=== PATIENT | female | born 1985 | race Caucasian/White ===

== ENCOUNTER 2020-02-10 15:53 | Emergency (ER) | payer MEDICAID ==
[~2020-02-10] VITALS: Ht 162.6 cm; Wt 76.1 kg
[2020-02-10 17:04] LABS: URINE HCG NEGATIVE (NEG)
[2020-02-10 17:17] LABS: BASOPHILS % (AUTO) 0.6 % (0-1); EOSINOPHILS # (AUTO) 0.1 X10'3 (0-0.9); EOSINOPHILS % (AUTO) 1.4 % (0-6); HEMATOCRIT 39.3 % (35.0-45.0); HEMOGLOBIN 12.7 g/dl (12.0-16.0); LYMPHOCYTES # (AUTO) 1.7 X10'3 (1.1-4.8); LYMPHOCYTES % (AUTO) 20.6 % (21-51); MEAN CORPUSCULAR HGB CONC 32.3 g/dL (33.0-36.5); MEAN CORPUSCULAR VOLUME 80.5 FL (78-98); MEAN PLATELET VOLUME 9.4 FL (7.4-10.4); MONOCYTES # (AUTO) 0.5 X10'3 (0-0.9); MONOCYTES % (AUTO) 6.4 % (2-12); NEUTROPHILS # (AUTO) 5.9 X10'3 (1.8-7.7); PLATELET COUNT 253 X10'3 (140-440); RED BLOOD COUNT 4.88 X10'6 (4.20-5.60); RED CELL DISTRIBUTION WIDTH 15.2 % (11.5-14.5); WHITE BLOOD COUNT 8.3 X10'3 (4.5-11.0)
[2020-02-10 17:21] LABS: ALANINE AMINOTRANSFERASE 19 U/L (12-78); ALBUMIN 3.5 G/DL (3.4-5.0); ALBUMIN/GLOBULIN RATIO 0.9 (1.1-1.5); ALKALINE PHOSPHATASE 66 IU/L (46-116); ANION GAP 8 (8-16); ASPARTATE AMINO TRANSFERASE 14 U/L (10-37); BILIRUBIN,TOTAL 0.2 MG/DL (0.1-1.0); BLOOD UREA NITROGEN 11 MG/DL (7-18); BUN/CREATININE RATIO 17.2 (6.6-38.0); CHLORIDE 107 MMOL/L (99-107); CREATININE 0.64 MG/DL (0.40-0.90); GLUCOSE 97 MG/DL (70-104); POTASSIUM 3.5 MMOL/L (3.5-5.1); SODIUM 142 MMOL/L (135-145); TOTAL CARBON DIOXIDE 26.8 MMOL/L (24-32); TOTAL PROTEIN 7.4 G/DL (6.4-8.2); eGFR > 90 ML/MIN
[2020-02-10 17:22] LABS: CLARITY,URINE CLEAR (Clear); COLOR,URINE YELLOW (Yellow); GLUCOSE, URINE NEGATIVE (Neg); KETONES,URINE NEGATIVE (Neg); LEUKOCYTE ESTERASE ,URINE NEGATIVE (Neg); NITRITES, URINE NEGATIVE (Neg); OCCULT BLOOD,URINE NEGATIVE (Neg); PH,URINE 6.5 (4.8-8.0); PROTEIN,URINE NEGATIVE (Neg); UROBILINOGEN,URINE 0.2 E.U/dL (0.2-1.0)
[2020-02-10 17:29] LABS: UA COLLECTION TYPE VOIDED
[2020-02-10 18:18] VITALS: BP 103/74
== END 2020-02-10 18:11 | disposition home or self-care (01) ==
LOC: ER 15:54
DX: R55 Syncope and collapse (principal); R42 Dizziness and giddiness; R11.0 Nausea; F41.9 Anxiety disorder, unspecified; F32.9 Major depressive disorder, single episode, unspecified
CPT/HCPCS: 36415; 71045; 80053; 81003; 81025; 85025; 93005; 99285

== ENCOUNTER 2020-02-19 15:53 | Emergency (ER) | payer MEDICAID | END 2020-02-19 16:09 | disposition left against medical advice (07) | LOC: ER 15:54 | DX: Z20.828 Contact with and (suspected) exposure to other viral communicable diseases (principal); Z53.21 Procedure and treatment not carried out due to patient leaving prior to being seen by health care provider ==

== ENCOUNTER 2021-02-13 09:04 | Emergency (ER) | payer MEDICAID ==
[~2021-02-13] VITALS: Ht 160 cm; Wt 56.8 kg
--- NOTE | 2021-02-13 12:25 | NUR ---
Pt has a moist cough.
[2021-02-13 12:29] LABS: BASOPHILS % (AUTO) 0.2 % (0-1); EOSINOPHILS % (AUTO) 0.4 % (0-6); HEMATOCRIT 35.5 % (35.0-45.0); HEMOGLOBIN 11.3 g/dl (12.0-16.0); LYMPHOCYTES # (AUTO) 0.8 X10'3 (1.1-4.8); LYMPHOCYTES % (AUTO) 13.9 % (21-51); MEAN CORPUSCULAR HEMOGLOBIN 24.2 PG (27.0-31.0); MEAN CORPUSCULAR HGB CONC 31.8 g/dL (33.0-36.5); MEAN CORPUSCULAR VOLUME 76.2 FL (78-98); MEAN PLATELET VOLUME 9.3 FL (7.4-10.4); MONOCYTES # (AUTO) 0.4 X10'3 (0-0.9); MONOCYTES % (AUTO) 6.5 % (2-12); NEUTROPHILS # (AUTO) 4.5 X10'3 (1.8-7.7); PLATELET COUNT 254 X10'3 (140-440); RED BLOOD COUNT 4.66 X10'6 (4.20-5.60); RED CELL DISTRIBUTION WIDTH 16.1 % (11.5-14.5); WHITE BLOOD COUNT 5.7 X10'3 (4.5-11.0)
[2021-02-13 12:39] LABS: D-DIMER 3.53 MG/L FEU (0-0.50)
[2021-02-13 12:46] LABS: ALANINE AMINOTRANSFERASE 37 U/L (12-78); ALBUMIN 2.6 G/DL (3.4-5.0); ALBUMIN/GLOBULIN RATIO 0.6 (1.1-1.5); ALKALINE PHOSPHATASE 49 IU/L (46-116); ANION GAP 7 (8-16); ASPARTATE AMINO TRANSFERASE 37 U/L (10-37); BILIRUBIN,TOTAL 0.4 MG/DL (0.1-1.0); BLOOD UREA NITROGEN 8 MG/DL (7-18); BUN/CREATININE RATIO 12.7 (6.6-38.0); C-REACTIVE PROTEIN 7.42 MG/DL (0.0-0.5); CALCIUM 8.5 MG/DL (8.5-10.1); CHLORIDE 104 MMOL/L (99-107); CREATININE 0.63 MG/DL (0.40-0.90); GLUCOSE 96 MG/DL (70-104); MAGNESIUM 2.4 MG/DL (1.5-2.4); SODIUM 140 MMOL/L (135-145); TOTAL PROTEIN 6.9 G/DL (6.4-8.2); eGFR > 90 ML/MIN
[2021-02-13 13:12] LABS: ANISOCYTOSIS 1+; MICROCYTOSIS 1+; PLATELET ESTIMATE NORMAL; TOTAL CELLS COUNTED 100
[2021-02-13 13:13] LABS: ELLIPTOCYTES FEW; LARGE PLATELETS FEW; SMUDGE CELLS FEW; TEAR DROP CELLS FEW
--- NOTE | 2021-02-13 13:30 | NUR ---
Pt attempted to void. Not able to give a specimen at this time. Given a pitcher of warm water.
[2021-02-13 14:10] VITALS: BP 97/65
[2021-02-13] MEDS ORDERED: iohexol 350MG/ML 100ml bottle IV ONE (14:40)
[2021-02-13] MEDS ORDERED: azithromycin 250mg tablet PO ONE (16:20)
[2021-02-13] MEDS ORDERED: dexamethasone 4mg tablet PO ONE (16:20)
[2021-02-13] MEDS ORDERED: DEXA6TAB6 PO (16:21)
[2021-02-13] MEDS ORDERED: AZIT-31 PO (16:21)
--- NOTE | 2021-02-13 16:40 | NUR ---
Pt given and understands d/c instructions. Ambulatory with a steady gait. IV d/c'd, catheter was intact.
== END 2021-02-13 16:43 | disposition home or self-care (01) ==
LOC: ER 09:05
DX: U07.1 COVID-19 (principal); J12.82 Pneumonia due to coronavirus disease 2019; E87.6 Hypokalemia; R09.02 Hypoxemia; Z79.2 Long term (current) use of antibiotics; Z79.899 Other long term (current) drug therapy
CPT/HCPCS: 36415; 71045; 71275; 80053; 83735; 84145; 85007; 85025; 85379; 86140; 87502; 87503; 87635; 99285; C9803; Q9967

== ENCOUNTER 2021-03-26 12:43 | Emergency (ER) | payer MEDICAID ==
[~2021-03-26] VITALS: Ht 162.6 cm; Wt 84.5 kg
[~2021-03-26 12:43] MED LIST: DEXA6TAB6 PO
[2021-03-26 12:45] VITALS: BP 116/66
== END 2021-03-26 14:11 | disposition home or self-care (01) ==
LOC: ER 12:44
DX: J02.9 Acute pharyngitis, unspecified (principal); F41.9 Anxiety disorder, unspecified; I10 Essential (primary) hypertension; Z20.822 Contact with and (suspected) exposure to COVID-19
CPT/HCPCS: 36415; 87081; 87880; 99283; U0003; U0005

== ENCOUNTER 2021-04-22 20:39 | Emergency (ER) | payer MEDICAID ==
[~2021-04-22] VITALS: Ht 162.6 cm; Wt 84.1 kg
[2021-04-22 20:48] VITALS: BP 109/60
--- NOTE | 2021-04-22 23:00 | NUR ---
ankle wrapped with alberta bandage. crutch trianing provided. verbal orders recvd from MD Hardeep.
== END 2021-04-22 23:01 | disposition home or self-care (01) ==
LOC: ER 20:40
DX: S93.401A Sprain of unspecified ligament of right ankle, initial encounter (principal); M25.571 Pain in right ankle and joints of right foot; M79.671 Pain in right foot; F41.9 Anxiety disorder, unspecified; F32.A Depression, unspecified; Z79.899 Other long term (current) drug therapy; W19.XXXA Unspecified fall, initial encounter; Y93.89 Activity, other specified; Y92.89 Other specified places as the place of occurrence of the external cause; Y99.8 Other external cause status
CPT/HCPCS: 29515; 73610; 73630; 99284

== ENCOUNTER 2021-05-19 09:40 | Emergency (ER) | payer MEDICAID ==
[~2021-05-19] VITALS: Ht 162.6 cm; Wt 84.0 kg
[2021-05-19 09:44] VITALS: BP 110/71
--- NOTE | 2021-05-19 10:27 | NUR ---
PT FINISHED ABX CLINDAMYCIN R/T BREAST PAIN 05/18/21
[2021-05-19] MEDS ORDERED: CefTRIAXone 1000mg IM Kit (w/lidocaine diluent) IM ONE (10:50)
[2021-05-19] MEDS ORDERED: DIF150T PO (11:07)
== END 2021-05-19 11:37 | disposition home or self-care (01) ==
LOC: ER 09:40
DX: N61.1 Abscess of the breast and nipple (principal); B37.3 Candidiasis of vulva and vagina; F41.9 Anxiety disorder, unspecified; F32.9 Major depressive disorder, single episode, unspecified
CPT/HCPCS: 96372; 99283; J0696

== ENCOUNTER 2021-08-01 09:56 | Emergency (ER) | payer MEDICAID ==
[~2021-08-01] VITALS: Ht 160 cm; Wt 86.4 kg
[2021-08-01 10:58] LABS: CLARITY,URINE CLEAR (Clear); COLOR,URINE YELLOW (Yellow); GLUCOSE, URINE NEGATIVE (Neg); KETONES,URINE NEGATIVE (Neg); LEUKOCYTE ESTERASE ,URINE NEGATIVE (Neg); NITRITES, URINE NEGATIVE (Neg); OCCULT BLOOD,URINE NEGATIVE (Neg); PH,URINE 6.5 (4.8-8.0); PROTEIN,URINE NEGATIVE (Neg); UA COLLECTION TYPE VOIDED; URINE HCG NEGATIVE (NEG); UROBILINOGEN,URINE 0.2 E.U/dL (0.2-1.0)
[2021-08-01] MEDS ORDERED: meclizine 12.5mg tablet PO ONE (12:00)
[2021-08-01] MEDS ORDERED: MECL-159 PO (12:08)
[2021-08-01 12:37] VITALS: BP 110/71
== END 2021-08-01 12:39 | disposition home or self-care (01) ==
LOC: ER 09:56
DX: R42 Dizziness and giddiness (principal); G43.909 Migraine, unspecified, not intractable, without status migrainosus; M54.2 Cervicalgia; Z79.899 Other long term (current) drug therapy
CPT/HCPCS: 81003; 81025; 99283; J8597

== ENCOUNTER 2021-10-01 09:58 | Emergency (ER) | payer MEDICAID ==
[~2021-10-01] VITALS: Ht 160 cm; Wt 88.6 kg
[~2021-10-01 09:58] MED LIST changes: +MECL-159 PO
[2021-10-01 10:10] VITALS: BP 112/74
[2021-10-01 11:13] LABS: CLARITY,URINE SLIGHTLY CLOUDY (Clear); GLUCOSE, URINE NEGATIVE (Neg); KETONES,URINE NEGATIVE (Neg); LEUKOCYTE ESTERASE ,URINE NEGATIVE (Neg); NITRITES, URINE NEGATIVE (Neg); OCCULT BLOOD,URINE NEGATIVE (Neg); PH,URINE 7.5 (4.8-8.0); PROTEIN,URINE NEGATIVE (Neg); UROBILINOGEN,URINE 0.2 E.U/dL (0.2-1.0)
[2021-10-01 11:15] LABS: COLOR,URINE STRAW (Yellow); UA COLLECTION TYPE CLN CATCH MIDSTREAM
[2021-10-01 11:18] LABS: URINE HCG NEGATIVE (NEG)
[2021-10-01 11:24] LABS: AMORPHOUS URATES 1+; BACTERIA,URINE 1+ /HPF (Neg); RBC,URINE 0-2 /HPF (0-2); SQUAMOUS EPITHELIAL CELL,UR FEW /LPF (FEW); WBC,URINE 0-4 /HPF (0-4)
[2021-10-01] MEDS ORDERED: acetaminophen 325mg tablet PO ONE (11:30)
[2021-10-01 11:38] LABS: BASOPHILS % (AUTO) 0.8 % (0-1); EOSINOPHILS # (AUTO) 0.1 X10'3 (0-0.9); HEMATOCRIT 36.1 % (35.0-45.0); HEMOGLOBIN 11.5 g/dl (12.0-16.0); LYMPHOCYTES % (AUTO) 31.7 % (21-51); MEAN CORPUSCULAR HEMOGLOBIN 23.4 PG (27.0-31.0); MEAN CORPUSCULAR HGB CONC 31.9 g/dL (33.0-36.5); MEAN CORPUSCULAR VOLUME 73.4 FL (78-98); MEAN PLATELET VOLUME 9.1 FL (7.4-10.4); MONOCYTES # (AUTO) 0.5 X10'3 (0-0.9); MONOCYTES % (AUTO) 8.4 % (2-12); NEUTROPHILS # (AUTO) 3.5 X10'3 (1.8-7.7); NEUTROPHILS % (AUTO) 57.1 % (42-75); PLATELET COUNT 236 X10'3 (140-440); RED BLOOD COUNT 4.93 X10'6 (4.20-5.60); RED CELL DISTRIBUTION WIDTH 18.8 % (11.5-14.5); WHITE BLOOD COUNT 6.2 X10'3 (4.5-11.0)
[2021-10-01 11:54] LABS: ALANINE AMINOTRANSFERASE 24 U/L (12-78); ALBUMIN 3.2 G/DL (3.4-5.0); ALBUMIN/GLOBULIN RATIO 0.8 (1.1-1.5); ALKALINE PHOSPHATASE 68 IU/L (46-116); ANION GAP 4 (8-16); ASPARTATE AMINO TRANSFERASE 18 U/L (10-37); BILIRUBIN,TOTAL 0.2 MG/DL (0.1-1.0); BLOOD UREA NITROGEN 10 MG/DL (7-18); BUN/CREATININE RATIO 18.9 (6.6-38.0); CALCIUM 9.2 MG/DL (8.5-10.1); CHLORIDE 107 MMOL/L (99-107); CREATININE 0.53 MG/DL (0.40-0.90); GLUCOSE 84 MG/DL (70-104); POTASSIUM 3.7 MMOL/L (3.5-5.1); SODIUM 141 MMOL/L (135-145); TOTAL CARBON DIOXIDE 29.9 MMOL/L (24-32); TOTAL PROTEIN 7.2 G/DL (6.4-8.2); eGFR > 90 ML/MIN
[2021-10-01 12:54] LABS: ANISOCYTOSIS 2+; MICROCYTOSIS 1+; PLATELET ESTIMATE NORMAL; TEAR DROP CELLS FEW
[2021-10-01 12:55] LABS: ELLIPTOCYTES FEW
[2021-10-01 12:56] LABS: LARGE PLATELETS MODERATE
== END 2021-10-01 13:20 | disposition home or self-care (01) ==
LOC: ER 09:59
DX: M54.59 Other low back pain (principal); R10.9 Unspecified abdominal pain; R11.0 Nausea; F41.9 Anxiety disorder, unspecified; F31.9 Bipolar disorder, unspecified; G43.909 Migraine, unspecified, not intractable, without status migrainosus; Z79.899 Other long term (current) drug therapy
CPT/HCPCS: 36415; 80053; 81001; 81025; 85008; 85025; 99283

== ENCOUNTER 2022-01-12 20:57 | Emergency (ER) | payer MEDICAID ==
[~2022-01-12] VITALS: Ht 160 cm; Wt 93.2 kg
[2022-01-12 21:03] VITALS: BP 114/72
[2022-01-12 21:41] LABS: ALANINE AMINOTRANSFERASE 16 U/L (12-78); ALBUMIN 3.1 G/DL (3.4-5.0); ALBUMIN/GLOBULIN RATIO 0.8 (1.1-1.5); ALKALINE PHOSPHATASE 71 IU/L (46-116); ANION GAP 8 (8-16); ASPARTATE AMINO TRANSFERASE 12 U/L (10-37); BILIRUBIN,TOTAL 0.1 MG/DL (0.1-1.0); BLOOD UREA NITROGEN 12 MG/DL (7-18); BUN/CREATININE RATIO 16.2 (6.6-38.0); CALCIUM 8.8 MG/DL (8.5-10.1); CHLORIDE 106 MMOL/L (99-107); CREATININE 0.74 MG/DL (0.40-0.90); EOSINOPHILS # (AUTO) 0.2 X10'3 (0-0.9); GLUCOSE 105 MG/DL (70-104); MEAN CORPUSCULAR HEMOGLOBIN 23.3 PG (27.0-31.0); MEAN CORPUSCULAR HGB CONC 31.6 g/dL (33.0-36.5); MEAN CORPUSCULAR VOLUME 73.9 FL (78-98); MEAN PLATELET VOLUME 9.2 FL (7.4-10.4); POTASSIUM 3.1 MMOL/L (3.5-5.1); SODIUM 139 MMOL/L (135-145); TOTAL CARBON DIOXIDE 25.2 MMOL/L (24-32); TOTAL PROTEIN 7.1 G/DL (6.4-8.2); WHITE BLOOD COUNT 9.4 X10'3 (4.5-11.0); eGFR 88 ML/MIN
[2022-01-12 21:44] LABS: BASOPHILS % (AUTO) 0.4 % (0-1); EOSINOPHILS % (AUTO) 1.6 % (0-6); HEMATOCRIT 35.9 % (35.0-45.0); HEMOGLOBIN 11.3 g/dl (12.0-16.0); LYMPHOCYTES # (AUTO) 2.6 X10'3 (1.1-4.8); LYMPHOCYTES % (AUTO) 28.1 % (21-51); MONOCYTES # (AUTO) 0.7 X10'3 (0-0.9); MONOCYTES % (AUTO) 7.9 % (2-12); NEUTROPHILS # (AUTO) 5.8 X10'3 (1.8-7.7); PLATELET COUNT 276 X10'3 (140-440); RED BLOOD COUNT 4.86 X10'6 (4.20-5.60); RED CELL DISTRIBUTION WIDTH 16.5 % (11.5-14.5)
== END 2022-01-12 23:15 | disposition left against medical advice (07) ==
LOC: ER 20:58
DX: R06.02 Shortness of breath (principal); Z53.21 Procedure and treatment not carried out due to patient leaving prior to being seen by health care provider
CPT/HCPCS: 36415; 71045; 80053; 84484; 85025; 93005

== ENCOUNTER 2022-02-11 00:50 | Emergency (ER) | payer MEDICAID ==
[~2022-02-11] VITALS: Ht 160 cm; Wt 104.5 kg
[2022-02-11 01:04] VITALS: BP 121/73
== END 2022-02-11 03:03 | disposition home or self-care (01) ==
LOC: ER 00:50
DX: G43.109 Migraine with aura, not intractable, without status migrainosus (principal); F41.9 Anxiety disorder, unspecified; F32.A Depression, unspecified; Z79.899 Other long term (current) drug therapy
CPT/HCPCS: 99281

== ENCOUNTER 2022-02-18 11:02 | Emergency (ER) | payer MEDICAID ==
[~2022-02-18] VITALS: Ht 160 cm; Wt 94.0 kg
[2022-02-18 11:46] VITALS: BP 111/72
== END 2022-02-18 13:47 | disposition home or self-care (01) ==
LOC: ER 11:03
DX: O26.892 Other specified pregnancy related conditions, second trimester (principal); Z3A.14 14 weeks gestation of pregnancy; G43.909 Migraine, unspecified, not intractable, without status migrainosus
CPT/HCPCS: 99282

== ENCOUNTER 2024-02-07 18:40 | Emergency (ER) | payer MEDICAID ==
[~2024-02-07] VITALS: Ht 162.6 cm; Wt 96.8 kg
[~2024-02-07 18:40] MED LIST changes: -MECL-159 PO; +MECL-302 PO
[2024-02-07 19:02] VITALS: BP 119/80; PULSE 88; RESP 17; O2SAT 98
[2024-02-07] MEDS: sulfamethoxazole/trimethoprim DS (800/160mg) tablet PO ONE (20:06)
[2024-02-07] MEDS ORDERED: SULF1TAB49 PO (20:10)
[2024-02-07 20:26] VITALS: TEMP 97.7
== END 2024-02-07 20:32 | disposition home or self-care (01) ==
LOC: ER 18:41
DX: L03.114 Cellulitis of left upper limb (principal); L08.9 Local infection of the skin and subcutaneous tissue, unspecified; G43.909 Migraine, unspecified, not intractable, without status migrainosus; F41.9 Anxiety disorder, unspecified; Z79.899 Other long term (current) drug therapy
CPT/HCPCS: 99283

== ENCOUNTER 2024-09-26 15:24 | Emergency (ER) | payer MEDICAID ==
[~2024-09-26] VITALS: Ht 162.6 cm; Wt 96.9 kg
[2024-09-26 16:02] VITALS: TEMP 97.6
[2024-09-26 16:32] LABS: MEAN PLATELET VOLUME 9.2 FL (7.4-10.4); RED CELL DISTRIBUTION WIDTH 17.7 % (11.5-14.5)
[2024-09-26 16:41] LABS: LEUKOCYTE ESTERASE ,URINE NEGATIVE (Neg); NITRITES, URINE NEGATIVE (Neg); OCCULT BLOOD,URINE NEGATIVE (Neg)
[2024-09-26 16:46] LABS: CREATININE 0.85 MG/DL (0.40-0.90); TOTAL CARBON DIOXIDE 25.5 MMOL/L (24-32); eCRCL 77 ML/MIN; eGFR 74 ML/MIN
[2024-09-26 16:48] LABS: URINE HCG NEGATIVE (NEG)
[2024-09-26 16:59] LABS: UA COLLECTION TYPE CLN CATCH MIDSTREAM
[2024-09-26] MEDS: ondansetron/PF 4mg/2ml inj IV ONE (17:08)
[2024-09-26] MEDS: normal saline 1000ML IV soln IVB ONE (17:08)
--- NOTE | 2024-09-26 17:29 | Physician Documentation ---
History of Present Illness Chief Complaint: Abdominal Pain Stated Complaint: ABD/BACK PAIN Time Seen by MD: 16:49 Primary Medical Doctor: THERESA URENA 38-year-old female presents to the ED with a complaint of intermittent abdominal pain with diarrhea for the last week. He states the toe pain is worse after eating. States that the pain is primarily central to her average abdomen and does not deviate from the midline. Denies any of vomiting or chest pain. Does report of nausea today Day of Onset: Sep 26, 2024 Medication Reconciliation Allergies: Coded Allergies: No Known Allergies (Unverified , 09/26/24) Scheduled Dexamethasone (Decadron), 1 TAB PO BID Scheduled PRN Meclizine HCl (Meclizine HCl), 1 TAB PO TID PRN PRN for dizziness/vertigo Past Medical History Past Medical History: Migraine, Anxiety, Depression Past Surgical History: no surgical history Alcohol Use: None Drug Use: none Lives In: Home Physical Exam Vital Signs: Temperature: 97.6, Source: Temporal, Heart Rate: 82, Respiratory Rate: 15, BP: 126/91, Pulse Oximetry: 96, Weight: 96.900 Oxygen Flow Rate: 0 Physical Exam General: Alert, no apparent distress. HEENT: PERRL, EOMI, no injection, moist mucous membranes. Neck: Full range of motion. Respiratory: Lungs clear, no respiratory distress. Chest: No accessory muscle use. Cardiovascular: Regular rate and rhythm, no murmurs. Gastrointestinal: Soft, nontender, nondistended. Bowels sounds present. Extremities: Normal range of motion, no deformity. Neurologic: Oriented x4. Psychiatric: Normal mood and affect. Skin: Normal color, warm and dry. No edema, no ecchymosis. Progress Results/Orders Results/Orders Orders - IVAN TURNER [employer] Ultrasound Of Abdomen (09/26/24 17:20) Completed Orders - IVAN TURNER [employer] Normal Saline 1000ml (0.9% Sodium Chlori (09/26/24 16:55) Ondansetron Inj. (Zofran 4mg/2ml Vial) (09/26/24 16:55) Medications Received in ER Medications (Trade) Dose Ordered Sig/Carine Route PRN Reason Start Time Stop Time Status Last Admin Dose Admin (0.9% sodium chloride (NS) 1000ml IV soln) 1,000 ml ONCE ONCE IVB 8/9/25 16:55 09/26/24 16:56 DC 09/26/24 17:08 1,000 ML (Zofran 4mg/2ml vial) 4 mg ONCE ONCE IV 09/26/24 16:55 09/26/24 16:56 DC 09/26/24 17:08 4 MG Vital Signs 09/26/24 09/26/24 09/26/24 16:02 16:21 17:11 Temp 97.6 Pulse 106 98 82 Resp 16 15 15 B/P (MAP) 120/83 144/82 (102) 126/91 (103) Pulse Ox 97 97 96 O2 Flow Rate 0 Laboratory Tests Test 09/26/24 16:10 09/26/24 16:24 Urine Specimen Description Cln catch midstream Urine Color Yellow Urine Clarity Clear Urine pH 6.0 Urine Specific [place] >=1.030 Urine Protein Negative Urine Glucose (UA) Negative Urine Ketones Trace H Urine Occult Blood Negative Urine Nitrite Negative Urine Bilirubin Negative Urine Urobilinogen 0.2 Urine Leukocyte Esterase Negative Urine Culture Indicated Not ind Volume Urine Centrifuged 10 ml Urine HCG, Qualitative Negative Urine Comment White Blood Count 14.0 H Red Blood Count 5.54 Hemoglobin 13.4 Hematocrit 42.0 Mean Corpuscular Volume 75.8 L Mean Corpuscular Hemoglobin 24.2 L Mean Corpuscular Hemoglobin Concent 31.9 L Red Cell Distribution Width 17.7 H Platelet Count 282 Mean Platelet Volume 9.2 Neutrophils (%) (Auto) 75.2 H Lymphocytes (%) (Auto) 16.2 L Monocytes (%) (Auto) 6.5 Eosinophils (%) (Auto) 1.7 Basophils (%) (Auto) 0.4 Neutrophils # (Auto) 10.5 H Lymphocytes # (Auto) 2.3 Monocytes # (Auto) 0.9 Eosinophils # (Auto) 0.2 Basophils # (Auto) 0.1 CBC Comment Sodium Level 135 Potassium Level 3.5 Chloride Level 103 Carbon Dioxide Level 25.5 Anion Gap 7 L Blood Urea Nitrogen 11 Creatinine 0.85 Estimated GFR/1.73 m2 74 BUN/Creatinine Ratio 12.9 Glucose Level 101 Calcium Level 9.0 Total Bilirubin 0.2 Aspartate Amino Transf (AST/SGOT) 12 Alanine Aminotransferase (ALT/SGPT) 18 Alkaline Phosphatase 95 Total Protein 7.7 Albumin 3.4 Globulin 4.3 Albumin/Globulin Ratio 0.8 L Lipase 31 Chemistry Comments Departure Disposition: HOME / SELF CARE / HOMELESS Impression: Primary Impression: Acute gastritis Condition: Stable Discharge Instructions: Gastritis, Adult Referrals: NO PRIMARY CARE PROVIDER (PCP) Signature Scribe Signature: h Attestation: Scribed for Ivan Turner Senior Payroll Manager by Ivan Templeton NP . 09/26/24 21:43 IVAN TURNER [employer] Sep 26, 2024 17:29
[2024-09-26 18:10] VITALS: BP 123/78; PULSE 78; RESP 15; O2SAT 98
--- NOTE | 2024-09-26 18:46 | RADIOLOGY REPORT ---
RIGHT UPPER QUADRANT ABDOMINAL ULTRASOUND CLINICAL HISTORY: mid epigastric pain COMPARISON: None TECHNIQUE: Grayscale and color Doppler ultrasound imaging of the right upper quadrant is performed. FINDINGS: Abdominal aorta: Imaged portions appear normal caliber. Pancreas: Visualized portions appear grossly unremarkable. Liver: Measures approximately 16 cm in length. Hyperechoic structure in the right hepatic lobe measur ing approximately 3 cm in diameter. The portal vein appears patent. Gallbladder: No sizable, shadowing cholelithiasis. No gallbladder wall thickening. No sonographic mur phy's sign elicited. Common bile duct: Nondilated. Right Kidney: Measures 10.6 cm in length. No hydronephrosis. Right upper quadrant Inferior vena cava: Visualized portions appear grossly patent. IMPRESSION: Approximately 3 cm hyperechoic lesion in the right hepatic lobe may represent a hemangioma but is oth erwise incompletely characterized. Recommend hepatic protocol MRI to further evaluate. No other acute findings as visualized.
== END 2024-09-26 18:12 | disposition home or self-care (01) ==
LOC: ER 15:25
DX: K29.00 Acute gastritis without bleeding (principal)
CPT/HCPCS: 36415; 76700; 80053; 81003; 81025; 83690; 85025; 96361; 96374; 99285; J2405; J7030